=== PATIENT | male | born 1960 | race Caucasian/White ===

== ENCOUNTER 2022-06-05 15:06 | Outpatient (CLI) | payer OTHER, SELFPAY ==
[2022-06-05 21:45] LABS: Albumin* 4.7 g/dL (3.3-5.0)
[2022-06-05 21:46] LABS: Chloride* 102 mmol/L (96-114); Potassium* 4.9 mmol/L (3.6-5.1); Sodium* 140 mmol/L (135-149)
[2022-06-05 21:48] LABS: Bilirubin Total* 0.8 mg/dL (0.1-1.5); Carbon Dioxide* 31 mmol/L (20-32); Cholesterol* 141 mg/dL (90-199); Creatinine* 1.2 mg/dL (0.5-1.5); Estimated Glomerular Filt Rate 70 ml/min
[2022-06-05 21:49] LABS: Alanine Aminotransferase* 32 U/L (4-50); Alkaline Phosphatase* 83 U/L (40-150); Aspartate Amino Transferase* 33 U/L (12-35); Blood Urea Nitrogen* 16 mg/dL (7-30); Calcium* 10.1 mg/dL (8.4-10.6); Glucose* 94 mg/dL (60-115); HDL Cholesterol* 43 mg/dL (>=40); LDL Cholesterol Calculated 70 mg/dL (<100); Total Protein* 7.3 g/dL (6.0-8.3); Triglycerides* 139 mg/dL (40-149)
[2022-06-05 22:18] LABS: PSA Screen* 0.53 ng/mL (0.10-4.00)
== END 2022-06-05 15:07 | disposition home or self-care (01) ==
PROVIDERS: PCP Physician Assistant Medical; Visit Provider Physician Assistant Medical
DX: Z00.00 Encounter for general adult medical examination without abnormal findings (principal); E03.9 Hypothyroidism, unspecified; E78.1 Pure hyperglyceridemia
CPT/HCPCS: 80053; 80061; 84153; 84443

== ENCOUNTER 2023-09-30 08:51 | Outpatient (CLI) | payer OTHER, SELFPAY | END 2023-09-30 08:52 | disposition home or self-care (01) | LOC: NFLDREF 10-04 14:41 | PROVIDERS: PCP Physician Assistant Medical; Referring Provider Physician Assistant Medical; Visit Provider Physician Assistant Medical | DX: Z00.00 Encounter for general adult medical examination without abnormal findings (principal); E03.9 Hypothyroidism, unspecified; E78.1 Pure hyperglyceridemia; Z12.5 Encounter for screening for malignant neoplasm of prostate | CPT/HCPCS: 80053; 80061; 84439; 84443; G0103 ==

== ENCOUNTER 2024-02-28 09:54 | Outpatient (CLI) | payer OTHER, SELFPAY | END 2024-02-28 09:55 | disposition home or self-care (01) | LOC: NFLDREF 03-02 07:36 | PROVIDERS: PCP Physician Assistant Medical; Referring Provider Physician Assistant Medical; Visit Provider Physician Assistant Medical | DX: E03.9 Hypothyroidism, unspecified (principal); H69.92 Unspecified Eustachian tube disorder, left ear | CPT/HCPCS: 84439; 84443 ==

== ENCOUNTER 2024-06-26 09:48 | Outpatient (CLI) | payer OTHER, SELFPAY | END 2024-06-26 09:49 | disposition home or self-care (01) | PROVIDERS: PCP Physician Assistant Medical; Referring Provider Physician Assistant Medical; Visit Provider Physician Assistant Medical | DX: E03.9 Hypothyroidism, unspecified (principal) | CPT/HCPCS: 84443 ==

== ENCOUNTER 2024-10-19 10:33 | Outpatient (CLI) | payer OTHER, SELFPAY | END 2024-10-19 10:34 | disposition home or self-care (01) | LOC: NFLDREF 10-23 15:08 | PROVIDERS: PCP Physician Assistant Medical; Referring Provider Physician Assistant Medical; Visit Provider Physician Assistant Medical | DX: Z00.00 Encounter for general adult medical examination without abnormal findings (principal); I10 Essential (primary) hypertension; E03.9 Hypothyroidism, unspecified; E78.1 Pure hyperglyceridemia; Z13.9 Encounter for screening, unspecified; Z12.5 Encounter for screening for malignant neoplasm of prostate | CPT/HCPCS: 80053; 80061; 84439; 84443; G0103 ==

== ENCOUNTER 2025-01-17 10:18 | Outpatient (CLI) | payer OTHER, SELFPAY | END 2025-01-17 10:19 | disposition home or self-care (01) | PROVIDERS: PCP Physician Assistant Medical; Referring Provider Physician Assistant Medical; Visit Provider Physician Assistant Medical | DX: E03.9 Hypothyroidism, unspecified (principal) | CPT/HCPCS: 84443 ==